=== PATIENT | male | born 1985 | race Caucasian/White ===

== ENCOUNTER 2017-08-31 11:29 | Emergency (ER) | payer OTHER ==
[~2017-08-31] VITALS: Ht 188 cm; Wt 93.9 kg
[2017-08-31 12:19] LABS: BASOPHIL % 0.3 % (0-2); PLATELET COUNT 184 x10^3mcL (130-400); RED CELL DISTRIBUTION WIDTH 13.4 % (11.5-14.5)
[2017-08-31 12:30] LABS: CARBON DIOXIDE 23.6 mmol/L (21-32); CHLORIDE SERUM 101 mmol/L (98-107); CREATININE SERUM 0.8 mg/dL (0.7-1.3); GFR1 > 60 mL/min; GLUCOSE SERUM 245 mg/dL (74-106); SODIUM SERUM 137 mmol/L (136-145)
[2017-08-31 12:30] LABS: microscopic required? NO
[2017-08-31 12:38] LABS: ALBUMIN 4.2 g/dL (3.4-5.0); ALKALINE PHOSPHATASE 86 U/L (46-116); ALT/SGPT 32 U/L (16-63); AMYLASE 51 U/L (25-115); AST/SGOT 15 U/L (15-37); BILIRUBIN TOTAL 0.8 mg/dL (0.20-1.00); LIPASE 97 IU/L (73-393); MAGNESIUM 1.8 mg/dL (1.8-2.4); TOTAL PROTEIN, SERUM 7.7 g/dL (6.4-8.2)
[2017-08-31 12:39] LABS: CHOLESTEROL 117 mg/dL (<200); HDL CHOLESTEROL 29 mg/dL (40-60)
[2017-08-31 12:51] LABS: UA SPECIFIC GRAVITY >=1.030 (1.005-1.035); urine erythrocyte NEGATIVE (NEGATIVE)
[2017-08-31 15:49] VITALS: BP 127/76
== END 2017-08-31 15:49 | disposition home or self-care (01) ==
LOC: ED 11:29
PROVIDERS: Emergency Medicine
DX: E11.65 Type 2 diabetes mellitus with hyperglycemia (principal); R55 Syncope and collapse
CPT/HCPCS: 83880; J7030; J8597; Q0092

== ENCOUNTER 2017-10-02 09:58 | Emergency (ER) | payer OTHER ==
[~2017-10-02] VITALS: Ht 188 cm; Wt 93.4 kg
[2017-10-02 10:04] VITALS: Ht 188 cm; Wt 93.4 kg
[2017-10-02 11:14] VITALS: BP 122/82
== END 2017-10-02 11:14 | disposition home or self-care (01) ==
LOC: ED 09:58
DX: S91.332A Puncture wound without foreign body, left foot, initial encounter (principal); X58.XXXA Exposure to other specified factors, initial encounter; Y93.89 Activity, other specified; Y92.89 Other specified places as the place of occurrence of the external cause; Y99.8 Other external cause status; E11.9 Type 2 diabetes mellitus without complications
CPT/HCPCS: Q0092

== ENCOUNTER 2018-06-28 16:33 | Emergency (ER) | payer OTHER ==
[~2018-06-28] VITALS: Ht 188 cm; Wt 96.2 kg
[2018-06-28 16:42] VITALS: Ht 188 cm; Wt 96.2 kg
[2018-06-28 19:42] VITALS: BP 151/84
== END 2018-06-28 19:42 | disposition home or self-care (01) ==
LOC: ED 16:33
DX: S39.012A Strain of muscle, fascia and tendon of lower back, initial encounter (principal); X58.XXXA Exposure to other specified factors, initial encounter; Y93.89 Activity, other specified; Y92.89 Other specified places as the place of occurrence of the external cause; Y99.8 Other external cause status
CPT/HCPCS: J1885

== ENCOUNTER 2018-12-14 00:44 | Emergency (ER) | payer OTHER ==
[~2018-12-14] VITALS: Ht 188 cm; Wt 96.7 kg
[2018-12-14 01:33] LABS: BASOPHIL % 0.5 % (0-2); PLATELET COUNT 175 x10^3mcL (130-400); RED CELL DISTRIBUTION WIDTH 13.1 % (11.5-14.5)
[2018-12-14 01:41] LABS: CALCIUM 8.8 mg/dL (8.5-10.1); CARBON DIOXIDE 27.2 mmol/L (21-32); CHLORIDE SERUM 99 mmol/L (98-107); CREATININE SERUM 0.8 mg/dL (0.7-1.3); GFR1 > 60 mL/min; GLUCOSE SERUM 392 mg/dL (74-106); POTASSIUM SERUM 3.7 mmol/L (3.5-5.1); SODIUM SERUM 136 mmol/L (136-145)
[2018-12-14 01:45] LABS: ALBUMIN 4.1 g/dL (3.4-5.0); ALKALINE PHOSPHATASE 96 U/L (46-116); ALT/SGPT 79 U/L (16-63); AMYLASE 76 U/L (25-115); AST/SGOT 24 U/L (15-37); BILIRUBIN TOTAL 0.65 mg/dL (0.20-1.00); LIPASE 100 IU/L (73-393)
[2018-12-14 02:26] VITALS: BP 115/70
== END 2018-12-14 02:26 | disposition home or self-care (01) ==
LOC: ED 00:44
PROVIDERS: Emergency Medicine
DX: K29.70 Gastritis, unspecified, without bleeding (principal); E11.9 Type 2 diabetes mellitus without complications; Z98.890 Other specified postprocedural states
CPT/HCPCS: J1885; J2405

== ENCOUNTER 2018-12-14 13:30 | Inpatient (IN) | payer OTHER ==
[~2018-12-14] VITALS: Ht 188 cm; Wt 95.9 kg
[2018-12-14 13:33] VITALS: Ht 188 cm; Wt 95.9 kg
--- NOTE | 2018-12-14 13:44 | NUR ---
PER STS THAT HE HAS HAD EPIGASTRIC PAIN SINCE YESTERDAY AT 1000. PER PT WAS HERE [facility] AND WAS GIVEN MEDICATION AND WAS NOT ABLE TO KEEP MEDCIATION DOWN. PT STS THAT HE HAS BEEN VOMITING/CONSTIPATION AND HAS NOT BEEN ABLE TO EAT. +BOWEL SOUNDS ALL FOUR QUAD. PT STS THAT HE HAS BEEN THROWING UP "YELLOW" PHLEGM. PT STS HE CAME BACK TO [facility] DUE TO FEELING WORSE. VSS. RESP E/U. WILL CONTINUE TO MONITOR.
--- NOTE | 2018-12-14 14:30 | NUR ---
MEDICATED PER EMAR, PT UNDERSTOOD MEDICATION ADMIN.
[2018-12-14 14:48] LABS: BASOPHIL % 0.3 % (0-2); PLATELET COUNT 173 x10^3mcL (130-400); RED CELL DISTRIBUTION WIDTH 13.3 % (11.5-14.5)
[2018-12-14 14:58] LABS: CALCIUM 9.2 mg/dL (8.5-10.1); CARBON DIOXIDE 29.6 mmol/L (21-32); CHLORIDE SERUM 99 mmol/L (98-107); CREATININE SERUM 0.9 mg/dL (0.7-1.3); GFR1 > 60 mL/min; GLUCOSE SERUM 317 mg/dL (74-106); SODIUM SERUM 138 mmol/L (136-145)
[2018-12-14 15:00] LABS: ALBUMIN 4.2 g/dL (3.4-5.0); ALKALINE PHOSPHATASE 84 U/L (46-116); ALT/SGPT 79 U/L (16-63); AMYLASE 57 U/L (25-115); AST/SGOT 31 U/L (15-37); BILIRUBIN TOTAL 1.3 mg/dL (0.20-1.00); LIPASE 74 IU/L (73-393); TOTAL PROTEIN, SERUM 7.9 g/dL (6.4-8.2)
--- NOTE | 2018-12-14 15:07 | NUR ---
PT OFF OF FLOOR VIA WHEELCHAIR TO RADIOLOGY.
--- NOTE | 2018-12-14 15:40 | NUR ---
PT STS THAT HE STILL HAS NASUE AND EPIGASTRIC PAIN 07/20. DR. ADKINS MADE AWARE. VSS. RESP E/U. WILL CONTINUE TO MONITOR.
[2018-12-14 15:54] LABS: microscopic required? NO
[2018-12-14 15:59] LABS: UA SPECIFIC GRAVITY 1.025 (1.005-1.035); urine erythrocyte NEGATIVE (NEGATIVE)
[2018-12-14 16:07] LABS: AMPHETAMINE QUAL UR NONE DETECTED (See below)
--- NOTE | 2018-12-14 16:49 | NUR ---
MEDICATED PER EMAR.
--- NOTE | 2018-12-14 17:30 | NUR ---
XRAY AT BEDSIDE FOR NG PLACEMENT.
--- NOTE | 2018-12-14 18:14 | NUR ---
REPORT GIVEN TO JEANNE KEITA TO ASSUME CARE.
[2018-12-14 18:37] VITALS: BP 135/86
--- NOTE | 2018-12-14 18:40 | NUR ---
RECEIVED PT FROM ED VIA [employer]. AMBULATORY WITH FULL ROM. GAIT STEADY. C/O CONTINUOUS EPIGASTRIC PAIN, WORSE WITH MOVEMENT. RATES 5/10. TOLERABLE AT THIS TIME. REPORTS LAST BM THIS AM, FORMED/BROWN. DENIES PASSING GAS AT THIS TIME. REPORTS INTERMITTENT N/V, GREEN. DENIES AT THIS TIME. NGT TO LEFT NARE. LEFT NARE PATENT. IV WNL TO LAC, 20 GAUGE. PATENT AND FLUSHES WELL. IV FLUIDS FLOWING. NO CHEST PAIN. NO SOB ON ROOM AIR. CALM/COOPERATIVE. BED IN LOW POSITION. CALL LIGHT WITHIN REACH. WILL ENDORSE TO ONCOMING SHIFT.
--- NOTE | 2018-12-14 19:40 | NUR ---
RECIEVED PT IN NO ACUTE DISTRESS. AOX4. MED SURG. DENIES CP. LUNGS CLEAR ON RA. BREATHING E/U. BOWEL SOUNDS ACTIVE X 4. C/O MILD NAUSEA AND 5/10 ABD PAIN, WILL MEDICATE PER EMAR. NGT PRESENT TO Serjio CRAWFORD. IV TO LAC, PATENT. BED IN LOWEST POSITION, 2 SIDE RAILS UP, CALL LIGHT IN REACH. INSTRUCTED TO CALL FOR ASSISTANCE.
[2018-12-14 20:00] VITALS: BP 139/90
--- NOTE | 2018-12-15 00:30 | NUR ---
PT C/O N/V. RECIEVED TELEPHONE ORDER FROM DR. GOMEZ TO PLACE NGT TO LOW INTERMITTENT SUCTION AND CHANGE MORPHINE 2MG TO 4MG Q4H.
[2018-12-15 05:04] VITALS: BP 136/84
--- NOTE | 2018-12-15 06:27 | NUR ---
50 ML GREEN OUTPUT FROM NGT. NO C/O ABD PAIN THIS AM. NO ACUTE DISTRESS NOTED. WILL ENDORSE TO ONCOMING RN.
--- NOTE | 2018-12-15 07:10 | NUR ---
RECEIVED PT FROM NIGHT NURSE. PT IS LAYING DOWN IN BED WITH HOB UP. PT LOOKS TO BE IN NO ACUTE DISTRESS AT THIS TIME AND IS COMPLAINING OF ABD PAIN. IV SITE PATENT WITH NO SIGNS OF ERYTHEMA OR SWELLING WITH IV FLUIDS INFUSING. RESPRIATIONS EVEN AND UNLABORED ON ROOM AIR. BED IN LOWEST POSITION, CALL LIGHT WITHIN REACH. WILL CONTINUE TO MONITOR.
[2018-12-15 09:29] VITALS: BP 131/86
--- NOTE | 2018-12-15 10:45 | NUR ---
NOTED NG TUBE PARTIALLY PULLED OUT, REINSERTED NG TUBE. AWAITING VERIFICATION OF PLACEMENT WITH X-RAY. WILL CONTINUE TO MONITOR.
--- NOTE | 2018-12-15 12:54 | NUR ---
RADIOLOGY AT BEDSIDE FOR SMALL BOWEL FOLLOW THROUGH. CONTRAST INSERTED VIA NG TUBE. INFORMED PT TO INFORM NURSE IF FEELING NAUSEATED. PT VERBALIZED UNDERSTANDING. PT STATES PAIN IS TOLERABLE AT THIS TIME. RADIOLOGY AT BEDSIDE. CALL LIGHT WITHIN REACH. WILL CONTINUE TO MONITOR.
--- NOTE | 2018-12-15 14:10 | NUR ---
RADIOLOGY REPORTED SMALL BOWEL FOLLOW THROUGH COMPLETED. CONTINUED LOW INTERMITTENT SUCTION TO NGT. DR. WASHBURN PT TO HAVE ICE CHIPS. PROVIDED PT WITH ICE CHIPS AND EDUCATED ON NPO STATUS BUT OKAY WITH TO HAVE ICE CHIPS. PT LOOKS TO BE IN NO ACUTE DISTRESS AT THIS TIME. CALL LIGHT WITHIN REACH. WILL CONTINUE TO MONITOR.
--- NOTE | 2018-12-15 16:18 | NUR ---
PT IS LAYING DOWN IN BED WITH HOB UP RESTING. PT LOOKS TO BE IN NO ACUTE DISTRESS AND DENIES ANY PAIN AT THIS TIME. IV SITE PATENT WITH NO SIGNS OF ERYTHEMA OR SWELLING. PROVIDED PT WITH ICE CHIPS. WILL CONTINUE TO MONITOR.
[2018-12-15 16:54] VITALS: BP 134/88
--- NOTE | 2018-12-15 17:50 | NUR ---
PT REQUESTING TO AMBULATE AROUND UNIT. REMOVED PT FROM SUCTION AND PT AMBULATING AROUND UNIT. PT DENIES ANY DIZZINESS OR WEAKNESS. INFORMED PT TO LET NURSE KNOW WHEN BACK IN ROOM.
[2018-12-15 18:07] LABS: BASOPHIL % 0.6 % (0-2); PLATELET COUNT 162 x10^3mcL (130-400); RED CELL DISTRIBUTION WIDTH 13.6 % (11.5-14.5)
[2018-12-15 18:14] LABS: CALCIUM 8.3 mg/dL (8.5-10.1); CARBON DIOXIDE 26.8 mmol/L (21-32); CHLORIDE SERUM 106 mmol/L (98-107); CREATININE SERUM 0.8 mg/dL (0.7-1.3); GFR1 > 60 mL/min; GLUCOSE SERUM 258 mg/dL (74-106); SODIUM SERUM 142 mmol/L (136-145)
--- NOTE | 2018-12-15 18:55 | NUR ---
PT RETURNED TO ROOM. PT DENIED ANY DIZZINESS OR WEAKNESS WITH AMBULATION. RECONNECTED NGT TO LOW INTERMITTENT SUCTION PER ORDER. PT LOOKS TO BE IN NO ACUTE DISTRESS AT THIS TIME. RESPIRATIONS EVEN AND UNLABORED ON ROOM AIR. CALL LIGHT WITHIN REACH. WILL ENDORSE TO ONCOMING SHIFT.
--- NOTE | 2018-12-15 19:40 | NUR ---
RECEIVED PT IN BED, RESTING QUIETLY. A/O X4. DENIES HEADACHE/DIZZINESS. RESP. EVEN AND UNLABORED. ON ROOM AIR , NO ACUTE DISTRESS NOTED. NGT TO LT NARE, CONNECTED TO LOW INTERM. SUCTION, BROWNISH COLOR DRAINAGE NOTED. NPO MAINTAINED. IVF, D5NS AT 80ML/HR, INTACT AND INFUSING VIA LAC, SITE CLEAR . ABLE TO MOVE ALL EXTS. VOIDING FREELY. CALL LIGHT WITHIN REACH. WILL CONTINUE TO MONITOR.
[2018-12-15 20:27] VITALS: BP 142/91
--- NOTE | 2018-12-15 20:30 | NUR ---
COMPLAINED OR ABD. PAIN 5/0, AND NAUSEA, MEDICATED WITH MORPHINE SULFATE AND ZOFRAN ORDERED. WILL CONTINUE TO MONITOR.
--- NOTE | 2018-12-15 21:54 | NUR ---
RESTING IN BED, PT STATES PAIN RELIEF AT THIS TIME. WILL CONTINUE TO MONITOR.
--- NOTE | 2018-12-16 01:53 | NUR ---
NO COMPLAINTS NOTED AT THIS TIME. RESTING QUIETLY, WITH EYES CLOSED, APPEARS ASLEEP, EASILY AROUSABLE. RESP. EVEN AND UNLABORED. NO ACUTE DISTRESS NOTED. NGT IN PLACE AND DRAINING BROWNISH COLOR DRAINAGE.CALL LIGHT WITHIN REACH. WILL CONTINUE TO MONITOR.
[2018-12-16 05:03] VITALS: BP 120/80
--- NOTE | 2018-12-16 06:26 | NUR ---
SLEPT WELL. NO COMPLAINTS NOTED AT THIS TIME. AFEBRILE AND VITAL SIGNS STABLE. RESP. EVEN AND UNLABORED, NO ACUTE DISTRESS NOTED. NGT TO LOW INTERM. SUCTION. 250ML BROWNISH COLOR DRAINAGE NOTED. NPO MAINTAINED. IVF INTACT AND INFUSING WELL, SITE CLEAR. NO COMPLAINTS NOTED AT THIS TIME. KEPT COMFORTABLE. VOIDING FREELY. CALL LIGHT WITHIN REACH . WILL CONTINUE TO MONITOR.
[2018-12-16 06:47] LABS: BASOPHIL % 0.3 % (0-2); PLATELET COUNT 156 x10^3mcL (130-400); RED CELL DISTRIBUTION WIDTH 13.8 % (11.5-14.5)
[2018-12-16 06:55] LABS: CARBON DIOXIDE 25.9 mmol/L (21-32); CHLORIDE SERUM 104 mmol/L (98-107); CREATININE SERUM 0.7 mg/dL (0.7-1.3); GFR1 > 60 mL/min; GLUCOSE SERUM 253 mg/dL (74-106); POTASSIUM SERUM 3.7 mmol/L (3.5-5.1); SODIUM SERUM 141 mmol/L (136-145)
--- NOTE | 2018-12-16 07:15 | NUR ---
RECEIVED PT FROM NIGHT NURSE. PT IS LAYING DOWN IN BED WITH HOB UP. PT LOOKS TO BE IN NO ACUTE DISTRESS AT THIS TIME AND STATES HAVING A HEADACHE 2/10. RESPIRATIONS EVEN AND UNLABORED ON ROOM AIR. NG TUBE TO LEFT NARES ON LOW INTERMITTENT SUCTION DRAINING DARK BROWN FLUID. IV SITE PATENT WITH NO SIGNS OF ERYTHEMA OR SWELLING WITH IV FLUIDS INFUSING. CALL LIGHT WITHIN REACH, BED IN LOWEST POSITION, WILL CONTINUE TO MONITOR.
[2018-12-16 07:55] VITALS: BP 137/83
--- NOTE | 2018-12-16 10:15 | NUR ---
DISCONTINUED NG TUBE ORDERED. PT TOLERATED WELL. PT STATES FEELING A LITTLE NAUSEATED BUT IS NO REQUESTING MEDICAITON AT THIS TIME. ADDITIONAL 125ML OF FLUID IN SUCTION CONTAINER FROM NGT. PT REQUESTING TO HAVE SOMETHING TO EAT. GAVE PT JELLO, INFORMED PT TO EAT SLOWLY AND TO INFORM NURSE IF FEELING NAUSEATED. PT VERBALIZED UNDERSTANDING. CALL LIGHT WITHIN REAC. WILL CONTINUE TO MONITOR.
--- NOTE | 2018-12-16 11:10 | NUR ---
PT FINISHED JELLO AND STATES IS FEELING NAUSEATED AT THIS TIME. PT STATED DID NOT START FEELING NAUSEATED UNTIL AFTER FINISHING JELLO, PT REQUESTING NAUSEA MEDICATION AT THIS TIME. WILL MEDICATE PT ACCORDING TO EMAR. WILL CONTINUE TO MONITOR.
--- NOTE | 2018-12-16 13:40 | NUR ---
PT ATE ALL OF LUNCH, PT STATES STILL FEELS NAUSEATED BUT HAS NOT VOMITED. PT STATES NAUSEA FEELS CONTROLLE RIGHT NOW AND DOES NOT NEED MEDICATION AT THIS TIME. WILL CONTINUE TO MONITOR.
[2018-12-16 16:42] VITALS: BP 124/79
--- NOTE | 2018-12-16 16:45 | NUR ---
PT REQUESTING TO SHOWER. PROVIDED PT WITH CLEAN TOWEL AND GOWN. INFORMED PT OF CALL LIGHT IN BATHROOM, WRAPPED PT'S IV SITE. CHANGED SHEETS WHILE PT SHOWERING. PT NOW BACK IN BED AND TOLERATED SHOWER WELL. MADE PT COMFORTABLE IN BED, WILL CONTINUE TO MONITOR.
--- NOTE | 2018-12-16 17:00 | NUR ---
PT REQUESTING TO STAY AN ADDITIONAL NIGHT. PT STATES, "DOES NOT FEEL 100%" AND STATES THAT HE STILL IS EXPERIENCING NAUSEA AT TIMES AND SOME PAIN WITH EATING. PT IS TOLERABLE. WILL NOTIFY
[2018-12-16 17:04] VITALS: BP 124/79
--- NOTE | 2018-12-16 18:48 | NUR ---
PT IS LAYING DOWN IN BED WITH HOB UP RESTING WITH EYES CLOSED. PT LOOKS TO BE IN NO ACUTE DISTRESS AT THIS TIME. RESPRIATIONS EVEN AND UNLABORED ON ROOM AIR. IV SITE PATENT WITH NO SIGNS OF ERYTHEMA OR SWELLING. CALL LIGHT WIHTIN REACH. WILL ENDORSE TO ONCOMING SHIFT.
--- NOTE | 2018-12-16 19:50 | NUR ---
RECIEVED PT IN NO ACUTE DISTRESS. AOX4. MED SURG. DENIES CP. LUNGS CLEAR ON RA. BREATHING E/U. BOWEL SOUNDS ACTIVE X 4. DENIES ABD PAIN/N/V. IV TO LAC, PATENT. BED IN LOWEST POSITION, 2 SIDE RAILS UP, CALL LIGHT IN REACH. INSTRUCTED TO CALL FOR ASSISTANCE.
[2018-12-16 20:51] VITALS: BP 124/87
--- NOTE | 2018-12-17 00:25 | NUR ---
RESTING IN BED WITH EYES CLOSED. BREATHING E/U. NO ACUTE DISTRESS NOTED. WILL CONTINUE TO MONITOR.
[2018-12-17 05:01] VITALS: BP 130/78
--- NOTE | 2018-12-17 06:25 | NUR ---
NO C/O ABD PAIN/N/V OVERNIGHT. NO ACUTE DISTRESS NOTED. WILL ENDORSE TO ONCOMING RN.
--- NOTE | 2018-12-17 07:05 | NUR ---
AAO X4.DENIES ANY PAIN/DISCOMFORT.LUNGS CLEAR.PT NON-TELE.IV SALINE LOCKED. NORMAL BOWEL SOUND.C/O HAVING A BLACK TARRY STOOL THAT STARTED YESTERDAY.WILL INFORM THR DOCTOR.
[2018-12-17 08:46] VITALS: BP 136/79
--- NOTE | 2018-12-17 09:57 | NUR ---
INFORMED THAT PT HAD A BLACK TARRY STOOL THAT STARTED YESTERDAY.ALSO INFORMED HIM PT GOT NAUSEATED WITH BREAKFAST.
[2018-12-17] MEDS ORDERED: REG5 PO (10:11)
[2018-12-17 12:55] VITALS: BP 124/79
--- NOTE | 2018-12-17 13:37 | NUR ---
PT D/C O HOME IV D/C'D.RX AND D/C INSTRUCTION GIVEN.PT VERBALIZES UNDERSTANDING.AWAITING FOR MOTHER TO PICK HIM UP.
--- NOTE | 2018-12-17 14:09 | NUR ---
MOTHER IS IN THE MAIN LOBBY TO BACKSHOE PERSON PT.WENT DOWN AMBULATORY ACCOMPANIED BY [employer] GR[employer].
== END 2018-12-17 14:09 | disposition home or self-care (01) | DRG 247 ==
LOC: ED 13:30 → MU 17:16
PROVIDERS: Emergency Medicine; Internal Medicine Pulmonary Disease; ADMIT Internal Medicine Pulmonary Disease
DX: K56.609 Unspecified intestinal obstruction, unspecified as to partial versus complete obstruction (principal); E11.9 Type 2 diabetes mellitus without complications; E86.0 Dehydration; Z79.84 Long term (current) use of oral hypoglycemic drugs; Z23 Encounter for immunization
CPT/HCPCS: 82962; 90658; G0378; J2270; J2405; J7030; J7042; Q0092; Q9967

== ENCOUNTER 2019-05-16 18:19 | Observation (INO) | payer OTHER ==
[~2019-05-16] VITALS: Ht 188 cm; Wt 100.7 kg
[~2019-05-16 18:19] MED LIST: REG5 PO
[2019-05-16 18:24] VITALS: Ht 188 cm; Wt 100.7 kg
[2019-05-16 20:13] LABS: microscopic required? NO
[2019-05-16 20:24] LABS: BASOPHIL % 0.3 % (0-2); PLATELET COUNT 165 x10^3mcL (130-400); RED CELL DISTRIBUTION WIDTH 13.6 % (11.5-14.5)
[2019-05-16 20:25] LABS: urine erythrocyte NEGATIVE (NEGATIVE)
[2019-05-16 20:34] LABS: CALCIUM 8.5 mg/dL (8.5-10.1); CARBON DIOXIDE 27.6 mmol/L (21-32); CHLORIDE SERUM 96 mmol/L (98-107); CREATININE SERUM 0.9 mg/dL (0.7-1.3); GFR1 > 60 mL/min; GLUCOSE SERUM 324 mg/dL (74-106); SODIUM SERUM 134 mmol/L (136-145)
[2019-05-16 20:38] LABS: ALBUMIN 3.7 g/dL (3.4-5.0); ALKALINE PHOSPHATASE 78 U/L (46-116); BILIRUBIN TOTAL 0.8 mg/dL (0.20-1.00); TOTAL PROTEIN, SERUM 7.3 g/dL (6.4-8.2)
[2019-05-16 20:44] LABS: POTASSIUM SERUM 3.7 mmol/L (3.5-5.1)
[2019-05-16 21:51] LABS: ALT/SGPT 73 U/L (16-63); AST/SGOT 51 U/L (15-37)
[2019-05-16] MEDS ORDERED: METFORMIN850 M1 PO (22:40)
[2019-05-17] VITALS (7 sets, daily range): BP systolic 117–130; BP diastolic 57–92
[2019-05-17] MEDS ORDERED: ECO81 PO (15:16)
== END 2019-05-17 17:13 | disposition home or self-care (01) ==
LOC: ED 18:19 → DU 23:28
PROVIDERS: Emergency Medicine; ADMIT Internal Medicine Pulmonary Disease
DX: R20.0 Anesthesia of skin (principal); R53.1 Weakness; E11.65 Type 2 diabetes mellitus with hyperglycemia; K90.81 Whipple's disease; Z23 Encounter for immunization
CPT/HCPCS: 82962; 90732; G0008; G0378; J1650; J1815; Q0092